=== PATIENT | female | born 1995 | race Caucasian/White ===

== ENCOUNTER 2016-09-30 20:21 | Observation (INO) | payer OTHER ==
[~2016-09-30 20:21] MED LIST: BUPIVACAINE HCL/EPINEPHRINE 50 ML VIAL IJ ONE
[2016-09-30] MEDS ORDERED: NORMAL SALINE 1,000 ML IV ONE ×2 (21:27→22:53)
--- NOTE | 2016-09-30 21:32 | ERNOTE ---
Abdominal HPI - Narrative Date of Service: 09/30/16 - General Chief Complaint: Abdominal Pain Time Seen by Provider: 09/30/16 21:05 Source: patient Exam Limitations: no limitations - Immun/Allergies/Home Medications Immunizatons: IMMUNIZATION HX History of Influenza Vaccine No Allergies/Adverse Reactions: Allergies No Known Drug Allergies Allergy (Verified 09/30/16 20:59) Home Medications: HOME MEDICATIONS Caplet 09/30/16 [Last Taken 09/29/16 08:00] - History of Present Illness Narrative: Pt. comes in with c/o RLQ pain for A WEEK. pt. is approx. 8 wk LMP was aug 09. Pt. states that she has had moderate bleeding throughout the . Pt. states that she has recently had a cold but denies any change in symptoms with cold s/sx. Pt. denies any SOB, CP, dizziness, NVD, alleviating factors, but states that movement, and palpation make the pain worse. Review of Systems - Review of Systems Constitutional: Present: no symptoms reported. Absent: recent illness, fever, chills, fatigue, malaise EYE: Present: no symptoms reported ENT: Present: no symptoms reported Respiratory: Present: no symptoms reported. Absent: shortness of breath, cough , wheezing Cardiology: Present: no symptoms reported. Absent: chest pain, palpitations, edema Gastrointestinal/Abdominal: Present: abdominal pain. Absent: nausea, vomiting, diarrhea Genitourinary: Present: pain - RLQ, discharge - bleeding Musculoskeletal: Present: no symptoms reported. Absent: back pain, joint pain All Other Systems: All systems neg except as marked - Patient's Past Medical History Patient History - Medical: No pertinent hx Patient History - Cardiac/Respiratory: No pertinent hx Patient History - Cancer: No Hx of Cancer Patient History - Surgical Procedures: No surgical history Patient History - Other: None LMP (Calendar): 08/06/17 - Social History Living Situations: home Smoking Status: Former smoker Have you smoked in the past 12 months: Yes Do you dip or chew tobacco: No Alcohol Use: none Drug Use: marijuana - Immunizations History of Influenza Vaccine: No Physical Exam - Physical Exam General Appearance: Present: wd/wn, alert, no apparent distress Eye Exam: Normal inspection: bilateral, PERRL: bilateral, EOMI: bilateral Ears, Nose, Throat: Present: normal ENT inspection, hearing grossly normal, normal pharynx Neck: Present: normal inspection, nontender. Absent: lymphadenopathy (R), lymphadenopathy (L) Respiratory: Present: no respiratory distress, normal breath sounds, no accessory muscle use, chest nontender, lungs clear Cardiovascular/Chest: Present: regular rate, rhythm, no murmur, normal peripheral pulses Gastrointestinal/Abdominal: Present: normal bowel sounds, nondistended, soft, no organomegaly, tenderness - RLQ suprapubic, rebound Back Exam: Present: normal range of motion, no vertebral tenderness, CVA tenderness (R) Extremity Exam: Present: normal inspection, non-tender, no edema, normal range of motion Neurological Exam: Present: alert, oriented, normal mood/affect, no motor/ sensory deficits. 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 - Vital Signs Patient's Vital Signs:: I have reviewed the patient's vital signs. Vital Signs: Vital Signs 09/30/16 20:52 Temperature 36.5 C Pulse Rate 126 H Respiratory 18 Rate Blood Pressure 98/66 O2 Sat by Pulse 100 Oximetry - Progress/Reassessment Chief Complaint: Abdominal Pain Progress:: Unchanged - Transfer of Care Physician Sign Out: Joana Nair Receiving Physician: Vj Blanc Pending Results: Physician/consult arrival Expected Disposition: Admit Departure - Departure Clinical Impression: Ectopic Qualifiers: Location of ectopic : unspecified location Intrauterine status: without intrauterine Qualified Code(s): O00.90 - Unspecified ectopic without intrauterine Disposition: [facility] Condition: Serious Referrals: Rukhsana Salas DO [Primary Care Provider] -
[2016-09-30] MEDS ORDERED: MORPHINE SULFATE 2 MG/ML DISP.SYRIN IV ONE ×2 (21:41→22:56)
[2016-09-30] MEDS ORDERED: MORPHINE SULFATE 2 MG/ML DISP.SYRIN ONE ×2 (21:43→23:03)
[2016-09-30] MEDS ORDERED: ONDANSETRON HCL/PF 2 MG/ML VIAL IV ONE (21:43)
[2016-09-30] MEDS ORDERED: ONDANSETRON HCL/PF 2 MG/ML VIAL ONE (21:44)
[2016-09-30 21:45] LABS: Hematocrit 30.9 % (37.0-47.0); Hemoglobin 10.5 gm/dL (12.5-16.0); Mean Cell Volume 91.7 fl (78-100); Mean Corpuscular Hemoglobin 31.2 pg (27-31); Mean Platelet Volume 9.3 fl (6.0-9.5); Neutrophil # 18.2 K/mm3 (1.3-6.0); Neutrophil % 90.3 % (42-75.0); Platelet Count 385 K/mm3 (150-450); Red Blood Count 3.37 M/mm3 (4.2-5.4); Red Cell Distribution Width 12.2 % (11.5-14.0); White Blood Count 20.2 K/mm3 (4.0-10.5)
--- NOTE | 2016-09-30 22:57 | HP ---
Chief Complaint - Chief Complaint Chief Complaint: RLQ pain History of Present Illness: Pt presented to the ED tonight with worsening pain in the RLQ. She has had pain over the last week and today it worsened. It is constant, worse with movement. She's also had URI symptoms. She c/o persistent nausea and vomiting all day today. She's had vaginal bleeding for the past 1 week with dime size blood clots on Monday. She's had b-hcgs this week with an appropriate rise and due for her new OB visit next week. - Patient's Past Medical History Patient History - Medical: No pertinent hx Additional info: Hx of chlamydia 2 years ago Patient History - Cardiac/Respiratory: No pertinent hx Patient History - Cancer: No Hx of Cancer Patient History - Surgical Procedures: No surgical history Patient History - Other: None LMP (females 10-50): LMP (Calendar): 08/06/17 - Family History Family History:: no untoward family reactions to anesthesia - Social History Living Situations: home Smoking Status: Former smoker Have you smoked in the past 12 months: Yes Do you dip or chew tobacco: No Alcohol Use: none Drug Use: marijuana - Immunizations History of Influenza Vaccine: No Review Of Systems (GEN) - Review of Systems Generalized/Overall Review: Present: No Symptoms Reported, Weakness, Malaise EENTM: Present: No Symptoms Reported Respiratory: Present: No Symptoms Reported, Shortness of Breath Cardiac: Present: No Symptoms Reported, Chest Pain Abdominal: Present: Nausea, Vomiting, Abdominal Pain Genitourinary: Present: Other - Vaginal bleeding Misc: All systems neg except as marked Immunizations: IMMUNIZATION HX History of Influenza Vaccine No Allergies/Adverse Reactions: Allergies Allergy/AdvReac Type Severity Reaction Status Date / Time No Known Drug Allergies Allergy Verified 09/30/16 20:59 Home Medications: HOME MEDICATIONS Caplet 09/30/16 [Last Taken 09/29/16 08:00] Exam - Exam Vital Signs: Vital Signs - Last Taken Temp 36.5 C 09/30/16 20:52 Pulse 126 H 09/30/16 20:52 Resp 18 09/30/16 20:52 BP 98/66 09/30/16 20:52 Pulse Ox 100 09/30/16 20:52 Constitutional: Present: Alert, Oriented x3, Cooperative, Acute distress Neck: Present: non-tender, trachea midline Respiratory: Present: chest non-tender, lungs clear, normal breath sounds, no respiratory distress Cardiovascular/Chest: Present: regular rate, rhythm, no edema Abdomen: Present: tender, guarding, firm, distended /Rectal: Present: Exam deferred Extremity: Present: normal range of motion Diagnostic Studies: Abnormal Lab Results 09/30/16 Range/Units 21:28 WBC 20.2 H (4.0-10.5) K/mm3 RBC 3.37 L (4.2-5.4) M/mm3 Hgb 10.5 L (12.5-16.0) gm/dL Hct 30.9 L (37.0-47.0) % MCH 31.2 H (27-31) pg Immature Gran % (Auto) 2.10 H (0.001-0.429) % Immature Gran # (Auto) 0.43 H (0.000-0.0310) K/mm3 Neutrophils % 90.3 H (42-75.0) % Lymphocytes % 4.2 L (20-51) % Neutrophils # 18.2 H (1.3-6.0) K/mm3 Lymphocytes # 0.8 L (1.5-3.5) k/mm3 Laboratory Results WBC 20.2 K/mm3 (4.0-10.5) H 09/30/16 21:28 RBC 3.37 M/mm3 (4.2-5.4) L 09/30/16 21:28 Hgb 10.5 gm/dL (12.5-16.0) L 09/30/16 21:28 Hct 30.9 % (37.0-47.0) L 09/30/16 21:28 MCV 91.7 fl (78-100) 09/30/16 21:28 MCH 31.2 pg (27-31) H 09/30/16 21: MCHC 34.0 g/dl (32-36) 09/30/16 21:28 RDW 12.2 % (11.5-14.0) 09/30/16 21:28 Plt Count 385 K/mm3 (150-450) 09/30/16 21:28 MPV 9.3 fl (6.0-9.5) 09/30/16 21:28 Immature Gran % (Auto) 2.10 % (0.001-0.429) H 09/30/16 21:28 Immature Gran # (Auto) 0.43 K/mm3 (0.000-0.0310) H 09/30/16 21: Neutrophils % 90.3 % (42-75.0) H 09/30/16 21:28 Lymphocytes % 4.2 % (20-51) L 09/30/16 21: Monocytes % 3.3 % (0.0-9) 09/30/16 21: Eosinophils % 0.0 % (0.0-3.0) 09/30/16 21: Basophils % 0.1 % (0.0-1.0) 09/30/16 21: Nucleated RBC % 0.0 k/mm3 (0-1) 09/30/16 21: Neutrophils # 18.2 K/mm3 (1.3-6.0) H 09/30/16 21:28 Lymphocytes # 0.8 k/mm3 (1.5-3.5) L 09/30/16 21: Monocytes # 0.7 k/mm3 (0.0-1.0) 09/30/16 21: Eosinophils # 0.0 k/mm3 (0.0-0.7) 09/30/16 21: Absolute Basophils 0.0 k/mm3 (0.0-0.1) 09/30/16 21:28 Assessment/Plan - Narrative Narrative: At this time, the pt is stable but likely has a ruptured ectopic and I recommend surgical evaluation. Pt is consented for diagnostic laparoscopy, evacuation of blood/fluid, possible salpingectomy, possible salpingostomy, possible oopharectomy, possible laparotomy. Should she have any evidence of appendicitis, will call in general surgery for intraoperative consult. She is OK to receive blood transfusion if need be. All questions and concerns were discussed with the pt and her mom and sister. - Assessment/Plan (1) Ectopic Problem: Acute Qualifiers: Location of ectopic : unspecified location Intrauterine status: without intrauterine Qualified Code(s): O00.90 - Unspecified ectopic without intrauterine
[2016-09-30 23:38] LABS: Albumin * 3.7 gm/dl (3.4-5.0); Anion Gap 15.8 mmol/L (6.8-13.8); BUN/Creatinine Ratio 24.2 (9.0-21.6); Bilirubin, Total 0.8 mg/dL (0.0-1.1); Ca. Corrected For Albumin 8.9 mg/dL (8.4-10.2); Carbon Dioxide 22.3 mmol/L (24-32.6); Potassium 5.1 mmol/L (3.4-4.6); Total Protein 7.3 gm/dL (6.2-8.2)
[2016-09-30 23:48] LABS: Urine Appearance Clear; Urine Bacteria 2+; Urine Bilirubin Negative (NEGATIVE); Urine Blood 250 /ul (NEGATIVE); Urine Color Dark Yellow; Urine Ketone 15 mg/dL (NEGATIVE); Urine Nitrite Negative (NEGATIVE); Urine Protein 15 mg/dL (NEGATIVE); Urine RBC 0-5 /hpf (0-5); Urine Specific Gravity >=1.030 SP.GR. (1.005-1.010); Urine Urobilinogen Normal (NORMAL); Urine WBC None Seen /hpf (0-5)
[2016-09-30 23:49] LABS: Urine Mucus Moderate - 2+; Urine Other Crystal Moderate - 2+ /hpf
[2016-09-30] MEDS ORDERED: RINGERS SOLUTION,LACTATED 1,000 ML IV ONE (23:55)
[2016-10-01] MEDS ORDERED: RINGERS SOLUTION,LACTATED 1,000 ML IV ONE (00:30)
[2016-10-01] MEDS ORDERED: RINGERS SOLUTION,LACTATED 1,000 ML IV PRN (02:23)
[2016-10-01] MEDS ORDERED: MORPHINE SULFATE 4 MG/ML SYRG IV PRN (02:23)
[2016-10-01] MEDS ORDERED: IBUPROFEN 600 MG TABLET PO PRN (02:23)
[2016-10-01] MEDS ORDERED: PROMETHAZINE HCL 12.5 MG in DEXTROSE 5 % IN WATER 50 ML IV PRN ×2 (02:25)
[2016-10-01] MEDS ORDERED: diphenhydrAMINE HCL 50 MG/ML VIAL IV PRN (02:25)
[2016-10-01] MEDS ORDERED: HYDROmorphone HCL 2 MG/ML VIAL IV PRN (02:25)
[2016-10-01] MEDS ORDERED: NALOXONE HCL 0.4 MG/ML VIAL IV PRN (02:25)
--- NOTE | 2016-10-01 02:47 | OR ---
Operative Report - Dictated Report Narrative: Operative report: 10/01/2016 Preoperative diagnosis: Suspected ruptured ectopic Postoperative diagnosis: Hemoperitoneum, right ruptured ectopic Procedure: Diagnostic laparoscopy, evacuation of hemoperitoneum, right salpingectomy and removal of ectopic , lysis of adhesions Surgeon: Rukhsana Salas D.O. Quarter [employer] Ironer: OR staff Anesthesia: Gen. IV fluids: 1100 Milliliters Urine output: 300 Milliliters Findings: Hemoperitoneum with 2000 ML's, the distal two thirds of the fallopian tube ruptured and ruptured into the mesial salpinx, normal-appearing appendix, multiple filmy adhesions of the right fallopian tube to the right pelvic sidewall, left fallopian tube appeared to be normal, normal ovaries bilaterally , long adhesion from the fundus of the uterus to the posterior cul-de-sac, filmy adhesions of pelvic deferred to the anterior abdominal wall, normal- appearing gallbladder EBL: 50 Milliliters Drains: None Pathology: Right ruptured fallopian tube and ectopic Complications: None Condition: Stable The patient was taken to the operating room. Anesthesia was found to be adequate. The patient was prepped and draped in the normal sterile fashion in the dorsal lithotomy position. A sterile speculum was then inserted into the vagina. The Certus uterine manipulator was then inserted into the uterus. The speculum was removed. A red rubber was then inserted into the bladder to drain throughout the procedure. Attention was then turned to the abdomen. Local anesthetic was then injected within the umbilicus. A 5 mm skin incision was then made with the scalpel. A hemostat was then used to bluntly dissect down to the fascia. The 5 mm camera was then inserted into the trocar and under direct visualization inserted into the abdomen. The abdomen was then insufflated to 10 mmHg. The abdomen was then surveyed and noted as above. Attention was then turned to the left lower quadrant, the peritoneum was mapped with local anesthetic, skin incised, subcutaneous tissue bluntly dissected, and a 12 mm trocar entered into the peritoneum under direct visualization. These steps were then repeated on the opposite side with a 5 mm trocar. The right ectopic and fallopian tube was then grasped. The tube appears macerated, dilated, and beyond repair. Electrocautery was then used to sequentially cauterize, cut, and remove the entire fallopian tube with ectopic. The fallopian tube with ectopic was placed in an Endobag and removed from the abdomen. The pedicles were then inspected and found to be hemostatic. The blood was then suctioned out of the abdomen and irrigated. The filmy adhesions were removed. No active bleeding was noted. The abdomen was then desufflated. The trochars were removed under direct visualization. The 12 mm port site fascia was repaired with 0 Vicryl. The skin incisions were then reapproximated with 4-0 Vicryl, benzoin and Steri- Strips. Band-Aids were then placed. The uterine manipulator was then removed and sites were hemostatic. The red rubber catheter was then removed. Clear yellow urine was noted throughout the entire procedure. The patient tolerated the procedure well. Sponge, lap, needle, and instrument counts were correct throughout the entire procedure. The patient was taken to the recovery room in stable condition.
[2016-10-01] MEDS: oxyCODONE HCL/ACETAMINOPHEN 1 TAB TABLET PO PRN ×2 (05:14→11:25)
[2016-10-01 06:06] LABS: Mean Cell Volume 91.7 fl (78-100); Mean Corpuscular Hemoglobin 30.6 pg (27-31); Mean Corpuscular Hgb Conc 33.3 g/dl (32-36); Mean Platelet Volume 8.5 fl (6.0-9.5); Neutrophil % 78.5 % (42-75.0); Platelet Count 224 K/mm3 (150-450); Red Blood Count 2.06 M/mm3 (4.2-5.4); White Blood Count 13.9 K/mm3 (4.0-10.5)
[2016-10-01 06:11] LABS: Hematocrit 18.9 % (37.0-47.0); Hemoglobin 6.3 gm/dL (12.5-16.0)
[2016-10-01] MEDS ORDERED: HYDROmorphone HCL 1 MG/ML DISP.SYRIN IV PRN (07:13)
[2016-10-01] MEDS ORDERED: MORPHINE SULFATE 2 MG/ML DISP.SYRIN IV PRN (07:14)
[2016-10-01] MEDS ORDERED: FLU VACC QS2016-17 36MOS UP/PF 60 MCG/0.5 ML DISP.SYRIN IM ONE (09:00)
[2016-10-01 15:40] VITALS: BP 106/47
--- NOTE | 2016-10-02 10:45 | DS ---
(1) Ectopic Problem: Acute Qualifiers: Location of ectopic : tubal Intrauterine status: without intrauterine Qualified Code(s): O00.10 - Tubal without intrauterine (2) Postoperative anemia due to acute blood loss Problem: Acute Description of Stay: Pt underwent surgical treatment for ectopic . She received 2 units of blood due to acute blood loss, symptomatic anemia. After surgery and transfusion she had minimal pain, ambulating, voiding, tolerating po with episodes of nausea. She was feeling much better and ready to go home. Procedures Performed: see notes below List Procedures: Laparoscopic right salpingectomy, lysis of adhesions, evacuation of hemoperitoneum Postop blood transfusion Discharge Disposition: Home self care Disposition: Home self-care Condition: Good Discharge Activity: No Lifting Discharge Diet: General/regular food Referrals: Rukhsana Salas DO [Primary Care Provider] - Problem Oriented Discharge Instructions to Patient/Family: Ectopic , [id number] Additional Patient Instructions (free text): Follow-up in the Office with Dr. Salas next week for post-op visit with HCG lab. We will call you on Monday with your follow up appointment. Alternate Motrin & Tylenol as needed for pain. Regular diet Activity as tolerated. Call if having increased pain, fever, chills, Foul smelling discharge. Prescriptions (Any new or edited meds): Acetaminophen [Tylenol] 1,000 mg PO Q6H #0 tablet Ibuprofen [Motrin] 600 mg PO Q6H PRN #0 tablet PRN Reason: Pain Complete Home Medications List: Complete Home Medication List: Acetaminophen [Tylenol] 1,000 mg PO Q6H #0 tablet 10/01/16 Ibuprofen [Motrin] 600 mg PO Q6H PRN #0 tablet 10/01/16
== END 2016-10-01 17:02 | disposition home or self-care (01) ==
LOC: ER 20:21 → AMB 23:25 → INTOOBSV 10-01 02:26 → MS 10-01 02:26
PROVIDERS: ADMIT Obstetrics & Gynecology Gynecologic Oncology; ATTEND Obstetrics & Gynecology Gynecologic Oncology
PROC: 10T24ZZ Resection of Products of Conception, Ectopic, Percutaneous Endoscopic Approach (ICD-10-PCS; principal; 2016-10-01)
PROC: 0UB54ZZ Excision of Right Fallopian Tube, Percutaneous Endoscopic Approach (ICD-10-PCS; 2016-10-01)
DX: O00.10 Tubal pregnancy without intrauterine pregnancy (principal); K66.1 Hemoperitoneum
CPT/HCPCS: 36415; 59151; 76830; 76856; 80053; 81001; 83605; 84145; 84702; 85025; 86850; 86900; 87040; 87491; 87591; 88305; 90471; 90686; 96365; 96375; 99284; G0378; P9016